=== PATIENT | female | born 2000 | race Caucasian/White ===

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

== ENCOUNTER 2021-07-22 06:29 | Emergency (ER) | payer OTHER ==
[~2021-07-22] VITALS: Ht 167.6 cm; Wt 63.5 kg
== END 2021-07-22 07:21 | disposition home or self-care (01) ==
LOC: ED 06:29
DX: O9A.211 Injury, poisoning and certain other consequences of external causes complicating pregnancy, first trimester (principal); S01.01XA Laceration without foreign body of scalp, initial encounter; S51.811A Laceration without foreign body of right forearm, initial encounter; Z3A.01 Less than 8 weeks gestation of pregnancy; W22.8XXA Striking against or struck by other objects, initial encounter; Y93.89 Activity, other specified; Y92.89 Other specified places as the place of occurrence of the external cause; Y99.8 Other external cause status

== ENCOUNTER → 2021-08-27 | Outpatient (CLI) | payer OTHER | END | disposition home or self-care (01) | LOC: US 13:47 | PROVIDERS: ATTEND Nurse Practitioner Women's Health | DX: Z34.81 Encounter for supervision of other normal pregnancy, first trimester (principal); Z3A.13 13 weeks gestation of pregnancy ==

== ENCOUNTER 2022-05-22 21:00 | Emergency (ER) | payer OTHER ==
[~2022-05-22] VITALS: Ht 149.8 cm; Wt 53.5 kg
== END 2022-05-22 22:27 | disposition home or self-care (01) ==
LOC: ED 21:00
DX: S96.911A Strain of unspecified muscle and tendon at ankle and foot level, right foot, initial encounter (principal); F17.200 Nicotine dependence, unspecified, uncomplicated; W18.39XA Other fall on same level, initial encounter; Y93.89 Activity, other specified; Y92.89 Other specified places as the place of occurrence of the external cause; Y99.8 Other external cause status

== ENCOUNTER 2024-05-06 13:37 | Emergency (ER) | payer OTHER ==
[~2024-05-06] VITALS: Ht 152.4 cm; Wt 63.5 kg
[2024-05-06] MEDS ORDERED: Ketorolac Tromethamine 15 MG/ML VIAL IV ONE (14:45)
[2024-05-06] MEDS ORDERED: SODIUM CHLORIDE 0.9% 1,000 ML IV ONE (14:45)
[2024-05-06 14:58] LABS: BASO # 0.1 10*3/uL (0.0-0.1); BASO % 0.7 % (0.0-1.0); EOS # 0.1 10*3/uL (0.0-0.4); EOS % 0.9 % (1.0-4.0); HEMATOCRIT 39.8 % (37.0-47.0); LYMPH # 2.8 10*3/uL (1.3-4.4); LYMPH % 31.3 % (27.0-41.0); MEAN CELL VOLUME 78.2 fl (81.0-99.0); MEAN CORPUSCULAR HGB 25.7 pg (27.0-31.0); MEAN CORPUSCULAR HGB CONC 32.9 g/dl (33.0-37.0); MEAN PLATELET VOLUME 8.5 fl (9.6-12.3); MONO # 0.4 10*3/uL (0.1-1.0); NEUT # 5.5 10*3/uL (2.3-7.9); PLATELET COUNT AUTOMATED 340 10*3/uL (130-400); RED BLOOD COUNT 5.09 10*6/uL (4.10-5.10); RED CELL DISTRI WIDTH 13.2 % (0-14.5); WHITE BLOOD COUNT 8.9 10*3/uL (4.8-10.8)
[2024-05-06] MEDS ORDERED: IOHEXOL 300 MG/ML 100 ML VIAL IV ONE (15:00)
[2024-05-06 15:16] LABS: BILIRUBIN Negative (Negative); BLOOD Negative (Negative); CLARITY Clear (Clear); COLOR Yellow (Yellow); GLUCOSE Negative (Negative); KETONE Negative (Negative); LEUKO ESTERASE Trace (Negative); NITRITE Negative (Negative); SPECIFIC GRAVITY >= 1.030 (1.001-1.030)
[2024-05-06 15:25] LABS: BUN 11 mg/dl (9-23); CHLORIDE 105 mmol/L (98-107); LIPASE 35 U/L (12-53)
[2024-05-06 15:40] LABS: BACTERIA 1+; CALCIUM OXALATE CRYSTALS Trace; EPITHELIAL CELLS 51-100
[2024-05-06] MEDS ORDERED: PEPCID20 MG PO (17:20)
== END 2024-05-06 17:32 | disposition home or self-care (01) ==
LOC: ED 13:37
PROVIDERS: Emergency Medicine
DX: K29.70 Gastritis, unspecified, without bleeding (principal); Z87.891 Personal history of nicotine dependence

== ENCOUNTER → 2025-02-09 | Outpatient (CLI) | payer SELFPAY ==
[~2025-02-09] MED LIST changes: +PEPCID20 MG PO
== END | disposition home or self-care (01) ==
LOC: US 14:27
PROVIDERS: ATTEND Nurse Practitioner Women's Health
DX: Z34.81 Encounter for supervision of other normal pregnancy, first trimester (principal); Z3A.08 8 weeks gestation of pregnancy

== ENCOUNTER → 2025-03-07 | Outpatient (CLI) | payer SELFPAY | LOC: US 09:57 | PROVIDERS: ATTEND Nurse Practitioner Women's Health | DX: O20.8 Other hemorrhage in early pregnancy (principal); Z3A.12 12 weeks gestation of pregnancy ==